=== PATIENT | female | born 1980 | race Caucasian/White ===

== ENCOUNTER → 2024-06-20 13:09 | Outpatient (REF) | payer OTHER, SELFPAY | LOC: HWWDC 13:09 | PROVIDERS: ATTENDING PHYSICIAN Obstetrics & Gynecology; FAMILY PHYSICIAN Internal Medicine | DX: Z12.31 Encounter for screening mammogram for malignant neoplasm of breast (principal) | CPT/HCPCS: 77063; 77067 ==

== ENCOUNTER → 2024-06-27 09:12 | Outpatient (REF) | payer OTHER, SELFPAY | LOC: WDC 09:12 | PROVIDERS: ATTENDING PHYSICIAN Obstetrics & Gynecology; FAMILY PHYSICIAN Internal Medicine | DX: R92.8 Other abnormal and inconclusive findings on diagnostic imaging of breast (principal) | CPT/HCPCS: 76642 ==

== ENCOUNTER → 2024-11-12 09:07 | Outpatient (REF) | payer OTHER, SELFPAY | LOC: WDC 09:07 | PROVIDERS: ATTENDING PHYSICIAN Obstetrics & Gynecology | DX: N64.4 Mastodynia (principal) | CPT/HCPCS: 76642; 77061; 77065 ==

== ENCOUNTER → 2025-04-12 11:07 | Outpatient (REF) | payer OTHER, SELFPAY | LOC: WDC 11:07 | PROVIDERS: ATTENDING PHYSICIAN Obstetrics & Gynecology | DX: R92.2 Inconclusive mammogram (principal) | CPT/HCPCS: 76641 ==